=== PATIENT | female | born 1955 | race Two or more races ===

== ENCOUNTER 2019-12-30 08:53 | Outpatient (AMBR) | payer OTHER, SELFPAY ==
--- NOTE | 2019-12-30 09:37 | PT.OIERPT ---
PT OP Initial Eval Patient Information Visit Reasons: right shoulder pain Medical Diagnosis: M75.41 Treatment Dx #1: R shoulder pain Start of Care: 12/30/19 Date of Onset: 6 months Initial Assessment Subjective Pt is 64 yr old japanese speaking female who c/o R shoulder pain that has worsened over the past 2 months and that she has resting tremor x1 yr that is getting worse. The fingers spasm and cross over each other and the hand closes involuntarily. Pt has pain with dressing, HH chores, haircare. R shoulder pain is 7/10 today and the top of the shoulder down to the shoulder blade is numb. PLOF: pt had full use of the shoulder with ADL's without pain. PMH: allergies, OA Imaging: with provider Pt goal: not sure, she is bothered more with the tremor than the pain. Objective R shoulder: FF: 145 deg Abd: 130 deg ER: 75 deg HBB: to R L4 Strength: 4-/5 in all planes with low pain level with resistance PROM: end-range pain with capsular tightness TTP: R upper quadrant Sock Liner strength: L: 40 lbs, R 28 lbs Drop arm: negative Alanis's: positive Supraspinatus: positive Assessment Pt presents with decreased R shoulder strength and AROM with low pain level consistent with referring Dx of impingement and possible labral irritation. Pt has musculoskeletal impairments that may benefit from therapy but she is more concerned about the worsening resting tremor of R hand and does not want to spend time doing therapy, she would rather get an answer as to why she has the tremor timmy. Pt may benefit from neurological consultation. Short Term and Mountain Services Manager Goals Eval and D/C Treatment Plan Eval and D/C Certification Dates: 12/30/19 to 01/28/20 Office Procedures PT Procedures PT Date of Service: 12/30/19 OP PT Eval Mod Complex 30 minutes: Yes
== END 2019-12-30 23:59 | disposition home or self-care (01) ==
PROVIDERS: PCP Family Medicine; Referring Provider Family Medicine; Visit Provider Orthopaedic Surgery
DX: M25.511 Pain in right shoulder (principal)
CPT/HCPCS: 97162

== ENCOUNTER → 2024-11-03 | Outpatient (CLI) | payer MEDICARE, SELFPAY ==
--- NOTE | 2024-11-03 09:00 | XR_ITS ---
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 FINDINGS: Abundant stool throughout the colon IMPRESSION: Abundant stool throughout the colon
== END | disposition home or self-care (01) ==
PROVIDERS: Referring Provider Internal Medicine Gastroenterology; Visit Provider Internal Medicine Gastroenterology
DX: K59.00 Constipation, unspecified (principal)
CPT/HCPCS: 74018

== ENCOUNTER → 2024-12-16 | Outpatient (CLI) | payer MEDICARE, MEDICAID, SELFPAY ==
--- NOTE | 2024-12-16 09:00 | XR_ITS ---
Examination: Gastrografin enema with KUB 26 spot fluoroscopic films of the abdomen Fluoroscopy Exam date and time December 16, 2024 0924 hours INDICATIONS: Flank pain 8 months incomplete colonoscopy 3 months ago TECHNIQUE AND FINDINGS: Colon filled in retrograde manner with Gastrografin to the cecum with abundant reflux into the terminal ileum Scattered colonic diverticula Abundant stool throughout the colon No constricting colonic lesion No rectal or other ulcerations IMPRESSION: Limited study, inadequate preparation No constricting colonic lesion Scattered colonic diverticulosis
== END | disposition home or self-care (01) ==
PROVIDERS: PCP Nurse Practitioner Family; Referring Provider Internal Medicine Gastroenterology; Visit Provider Internal Medicine Gastroenterology
DX: K57.30 Diverticulosis of large intestine without perforation or abscess without bleeding (principal)
CPT/HCPCS: 74280

== ENCOUNTER 2025-07-26 13:30 | Outpatient (RCR) | payer MEDICARE, SELFPAY ==
--- NOTE | 2025-07-11 13:46 | PTNOTE_ITS ---
PT OP Initial Eval Patient Information Outpatient Physical Therapy Treatment Date: 07/11/25 Visit Reasons: parkinsons Medical Diagnosis: Parkinson's disease Treatment Dx #1: Gait abnormality Treatment Dx #2: Balance impairment Start of Care: 07/11/25 Date of Onset: 5 yrs ago Smoking Status Smoking Status: Never smoker Initial Assessment Subjective: Pt is 69 yr old japanese speaking female who reports she takes small steps on the balls of her feet and lists to the right when she walks. She can do HH chores, cook and do laundry for about 15-20 mins at a time and then she sits to rest. She can walk for about 20 mins and feels like she leans fwd and her balance pulls her forward. Pt uses a cane sometimes when she goes outside. Pt lives with who helps to dress and put her shoes on. PLOF: pt was ambulating without assitive device x community distances PMH: Parkinson's, HTN, allergies, lumbar sx in 2017, R shoulder in 2004 Pt goal: not sure Objective: Tinetti: moderate fall risk ? SL balance: R 5 sec, L 5 sec ? Tandem stance: slight sway, ? Strength of LE's: ? L hamstrings: 4-/5, R 4-/5 ? B quads: 4-/5 Gait: Parkinsonian gait with fwd lean, short steps but swing foot passes step foot Assessment: Pt presents with decreased balance with turning, balance on uneven surfaces and ? decreased LE strength. Pt scored moderate fall risk on the Tinetti gait ? and balance assessment. She takes shorter step length than normal and ambulates with fwd lean. Pt would benefit from skilled therapy to improve gait pattern and balance and has fair rehab potential. 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 Independent with HEP ? 2. No sway with tandem stance on firm surfaces for 15 seconds ? 3. Ambulate with neutral lean x100' ? 4. Improved Tinetti score to Treatment Plan 1. Manual therapy ? 2. Therex ? 3. Modalities as indicated, moist heat, ice, estim 4. Gait training 5. Neuromuscular reeducation Frequency and Duration: 1-2x a week for 12 visits plus the evaluation Certification Dates: 07/11/25 to 10/09/25 Procedure Charges OP PT Eval Mod Complex 30 minutes: Yes
--- NOTE | 2025-07-19 14:16 | PT.ODAYNRPT ---
PT Outpatient Daily Note OP Daily Note Outpatient Physical Therapy Treatment Date: 07/19/25 Visit Reasons: parkinsons Subjective: Pt reports pain in the lateral part of the L/S when she walks and that the LE's feel heavy Objective: See F/S for therex Assessment: Pt fatigues quickly with therex in standing Plan: Continue per POC Length of Time (minutes) of Treatment: 30 Minutes Procedure Charges Therapeutic Exercise 30 minutes: Yes
--- NOTE | 2025-07-26 14:34 | PTNOTE_ITS ---
PT Outpatient Daily Note OP Daily Note Outpatient Physical Therapy Treatment Date: 07/26/25 Visit Reasons: parkinsons Subjective: No concerns or complaints. Objective: Please see flow sheet for ther ex list. Assessment: Pt demonstrates poor arm swing and short step length making pt high fall risk. Pt instructed on arm swing requires TC and demonstrations for proper sequence. Plan: Continue with poC. Length of Time (minutes) of Treatment: 30 Minutes SOFTWARE SOLUTIONS ARCHITECT Service Modifier Method I: Divide the number of min of care provided by the SOFTWARE SOLUTIONS ARCHITECT/PROTECTION CONSULTANT by the total min of care provided then multiply by 100. If greater than 11 percent modifier is required. Method II: Divide the total time of care provided to patient by 10 (round to the nearest whole number) and add 1 min. to set the minimum time requirement. If treatment total was 60 min., then 10% of 6 min PT CQ modifier applied: CQ Modifier applied Procedure Charges Therapeutic Exercise 30 minutes: Yes
== END 2025-07-31 23:59 | disposition home or self-care (01) ==
LOC: CPTX 13:30
PROVIDERS: PCP Nurse Practitioner; Referring Provider Nurse Practitioner; Visit Provider Nurse Practitioner
DX: R26.89 Other abnormalities of gait and mobility (principal); G20.A1 Parkinson's disease without dyskinesia, without mention of fluctuations; I10 Essential (primary) hypertension
CPT/HCPCS: 97110; 97162

== ENCOUNTER 2025-08-23 14:00 | Outpatient (RCR) | payer MEDICARE, SELFPAY ==
--- NOTE | 2025-08-02 15:07 | PT.ODAYNRPT ---
PT Outpatient Daily Note OP Daily Note Outpatient Physical Therapy Treatment Date: 08/02/25 Visit Reasons: Parkinson's disease Subjective: Pt mentioned that she tries to remind herself when she is walking to grape picker her feet and take bigger steps. Objective: Pleaes see flow sheet for ther ex list. Assessment: Worked on facilitating arm swing with BATTERBOARD SETTER assist for proper sequence with step and leading arm swing. pt demonstrates increase arm swing at end of session and increase step lenght. Plan: Continue with poC. Length of Time (minutes) of Treatment: 30 Minutes BATTERBOARD SETTER Service Modifier Method I: Divide the number of min of care provided by the BATTERBOARD SETTER/INSPECTOR INTEGRATED CIRCUITS by the total min of care provided then multiply by 100. If greater than 11 percent modifier is required. Method II: Divide the total time of care provided to patient by 10 (round to the nearest whole number) and add 1 min. to set the minimum time requirement. If treatment total was 60 min., then 10% of 6 min PT CQ modifier applied: CQ Modifier applied Procedure Charges Therapeutic Exercise 30 minutes: Yes
--- NOTE | 2025-08-09 14:40 | PT.ODAYNRPT ---
PT Outpatient Daily Note OP Daily Note Outpatient Physical Therapy Treatment Date: 08/09/25 Visit Reasons: Parkinson's disease Subjective: Pt reports noticing improvement in her steps. Objective: Please see flow sheet for ther ex list. Assessment: Pt demonstrates improved gait, increase arm swing and step length indicating progress. Plan: Continue with pOC. Length of Time (minutes) of Treatment: 30 Minutes FLAME BRAZING MACHINE OPERATOR Service Modifier Method I: Divide the number of min of care provided by the FLAME BRAZING MACHINE OPERATOR/KETTLE OPERATOR by the total min of care provided then multiply by 100. If greater than 11 percent modifier is required. Method II: Divide the total time of care provided to patient by 10 (round to the nearest whole number) and add 1 min. to set the minimum time requirement. If treatment total was 60 min., then 10% of 6 min PT CQ modifier applied: CQ Modifier applied Procedure Charges Therapeutic Exercise 30 minutes: Yes
--- NOTE | 2025-08-16 14:40 | PT.ODAYNRPT ---
PT Outpatient Daily Note OP Daily Note Outpatient Physical Therapy Treatment Date: 08/16/25 Visit Reasons: Parkinson's disease Subjective: Pt reports progress with step length but notices there are times when she goes back to shuffling her feet. Objective: Please see flow sheet for ther ex list. Assessment: Pt demonstrates improved step length and arm swing during GT. Added step tap exercise, pt requires cues to increase step height to be able to tap the step. Plan: Continue with poC. Length of Time (minutes) of Treatment: 30 Minutes QUALITY IMPROVEMENT MANAGER Service Modifier Method I: Divide the number of min of care provided by the QUALITY IMPROVEMENT MANAGER/AGRICULTURAL EXTENSION OFFICER by the total min of care provided then multiply by 100. If greater than 11 percent modifier is required. Method II: Divide the total time of care provided to patient by 10 (round to the nearest whole number) and add 1 min. to set the minimum time requirement. If treatment total was 60 min., then 10% of 6 min PT CQ modifier applied: CQ Modifier applied Procedure Charges Therapeutic Exercise 30 minutes: Yes
--- NOTE | 2025-08-23 14:47 | PT.ODAYNRPT ---
PT Outpatient Daily Note OP Daily Note Outpatient Physical Therapy Treatment Date: 08/23/25 Visit Reasons: Parkinson's disease Subjective: Pt notices progress with gait. Objective: Please see flow sheet for ther ex list. Assessment: Pt demonstrates improved steps length and arm swing but continues to base narrow based stride making pt high fall risk. Plan: Continue with poC. Length of Time (minutes) of Treatment: 30 Minutes DESKTOP SUPPORT CONSULTANT Service Modifier Method I: Divide the number of min of care provided by the DESKTOP SUPPORT CONSULTANT/PACKAGING TECH by the total min of care provided then multiply by 100. If greater than 11 percent modifier is required. Method II: Divide the total time of care provided to patient by 10 (round to the nearest whole number) and add 1 min. to set the minimum time requirement. If treatment total was 60 min., then 10% of 6 min PT CQ modifier applied: CQ Modifier applied Procedure Charges Therapeutic Exercise 30 minutes: Yes
== END 2025-08-31 23:59 | disposition home or self-care (01) ==
LOC: CPTX 14:00
PROVIDERS: PCP Nurse Practitioner; Referring Provider Nurse Practitioner; Visit Provider Nurse Practitioner
DX: R26.89 Other abnormalities of gait and mobility (principal); G20.A1 Parkinson's disease without dyskinesia, without mention of fluctuations; I10 Essential (primary) hypertension
CPT/HCPCS: 97110